=== PATIENT | female | born 1960 | race Native Hawaiian/Other Pacific Islander ===

== ENCOUNTER 2016-09-13 10:59 | Emergency (ER) | payer BC ==
[2016-09-13 14:01] VITALS: BP 153/80
--- NOTE | 2016-09-13 14:34 | ED Physician Documentation ---
History of Present Illness - Stated complaint Stated Complaint: CHEST PX - Chief complaint Chief Complaint: General - History obtained from History obtained from: Patient - History of Present Illness Timing: How many days ago (4) Pain level max: 2 Pain level now: 0 Improved by: rest Worsened by: laughing, coughing Associated symptoms: none - Additonal information Additional information: Patient is a 55-year-old female who presents to the emergency department with bilateral chest wall pain for the past few days. Worse with coughing or laughing. Denies any URI symptoms. No fevers. No pain currently. She did take 1 dose of Motrin a few days ago which did seem to help. Review of Systems Constitutional: denies: Fever, Chills Nose: denies: Rhinorrhea / runny nose, Congestion Throat: denies: Sore throat Cardiac: denies: Palpitations Respiratory: reports: Cough (States no significant cough. States her cough is more of a clearing of the throat.). denies: Dyspnea, Hemoptysis, Wheezing GI: denies: Abdominal Pain, Nausea, Vomiting, Diarrhea Skin: denies: Rash Musculoskeletal: denies: Neck pain, Back pain PD PAST MEDICAL HISTORY - Past Medical History Past Medical History: Yes Cardiovascular: High cholesterol - Past Surgical History Past Surgical History: Yes /[employer]: Hysterectomy - Present Medications Home Medications: Ambulatory Orders Medication Instructions Recorded Confirmed Atorvastatin Calcium 20 mg PO DAILY 09/13/16 09/13/16 Meloxicam [Mobic] 7.5 mg PO BID PRN #20 tablet 09/13/16 - Allergies Allergies/Adverse Reactions: Allergies Allergy/AdvReac Type Severity Reaction Status Date / Time No Known Drug Allergies Allergy Verified 09/13/16 11:19 - Living Situation Living Arrangement: reports: At home - Social History Does the pt smoke?: No Smoking Status: Never smoker Does the pt have substance abuse?: No PD ED PE NORMAL - Vitals Vital signs reviewed: Yes - General General: Alert and oriented X 3, No acute distress, Well developed/nourished - HEENT HEENT: Moist mucous membranes - Neck Neck: Supple, no meningeal sign - Cardiac Cardiac: RRR, Strong equal pulses - Respiratory Respiratory: No respiratory distress, Clear bilaterally - Abdomen Abdomen: Soft, Non tender, Non distended - Derm Derm: Warm and dry - Neuro Neuro: Alert and oriented X 3 - Psych Psych: Normal mood, Normal affect Results - Vitals Vitals: Vital Signs - 24 hr 09/13/16 09/13/16 11:17 14:01 Temperature 36.9 C 36.5 C Heart Rate 74 64 Respiratory 17 14 Rate Blood Pressure 163/78 H 153/80 H O2 Saturation 100 100 Oxygen O2 Source Room air - EKG (time done) 1110 Rate: Rate (enter#) (69) Rhythm: NSR [place]: Normal Intervals: Normal NE QRS: Normal Ischemia: Normal ST segments Computer interpretation: Agree with computer PD MEDICAL DECISION MAKING - ED course Complexity details: considered differential, d/w patient ED course: Patient is a 55-year-old female who presents to the emergency department with atypical bilateral chest pain. The pain is only present when she laughs or coughs. No pain with movement currently. No tenderness along the chest wall here. No extremity swelling. No evidence of DVT or pulmonary embolus. No evidence of acute coronary syndrome. Normal EKG. Sounds musculoskeletal. Will trial her on nonsteroidal anti-inflammatory medications and follow-up with her doctor. She will return sooner if she worsens. Patient counseled regarding signs and symptoms for which I believe and urgent re-evaluation would be necessary. Patient with good understanding of and agreement to plan and is comfortable going home at this time This document was made in part using voice recognition software. While efforts are made to proofread this document, sound alike and grammatical errors may occur. Departure - Departure Disposition: 01 Home, Self Care Clinical Impression: Chest wall pain Condition: Good Instructions: ED Strain Chest Wall Follow-Up: your,doctor in 1 week [Other] Prescriptions: Meloxicam [Mobic] 7.5 mg PO BID PRN #20 tablet PRN Reason: pain Comments: This should improve over the next few days. Return if you worsen or fail to improve as expected. Your blood pressure was elevated today on check in to the emergency department. This does not mean that you have hypertension, it is a common phenomenon to check into the emergency department and have elevated blood pressure. I recommend that you see your primary care physician within the week to have it rechecked when you're feeling better. Discharge Date/Time: 09/13/16 14:53
== END 2016-09-13 14:53 | disposition home or self-care (01) ==
LOC: ED 10:59
DX: R07.89 Other chest pain (principal); R03.0 Elevated blood-pressure reading, without diagnosis of hypertension; E78.00 Pure hypercholesterolemia, unspecified
CPT/HCPCS: 93005; 93010; 99283